=== PATIENT | female | born 1955 | race Two or more races ===

== ENCOUNTER → 2020-02-22 | Outpatient (CLI) | payer MEDICARE ==
[2020-02-22 10:55] VITALS: BP 162/96; PULSE 74; RESP 16
--- NOTE | 2020-02-22 12:13 | P.PAINCN ---
History of Present Illness - Reason for Consult Consult date: 02/22/20 - History of Present Illness This is initial consultation visit for this 65 years old female with a chronic history of low back pain, she reported that she had back pain issues for more than 10 years, but in June 2019 she started having continuous severe pain in the low back area which is increased with any activity, she described the pain as shooting aching pain associated with spasm radiating from the low back area towards the feet bilaterally, with occasional weakness, in the lower extremity, she denies any initiating event she denies any fever or night sweats, she is able to ambulate on her own she denies any change in the bowel movement or urination, she is currently on Motrin and Trileptal, and she is getting some benefit from it and she denies any side effect of the medication Past Medical History Past Medical History: Hypertension, Osteoarthritis (OA), Pneumonia Additional Past Medical History / Comment(s): hx migraines, spinal stenosis, anemia History of Any Multi-Drug Resistant Organisms: None Reported Past Surgical History: Section, Hysterectomy, Tonsillectomy Past Anesthesia/Blood Transfusion Reactions: No Reported Reaction Smoking Status: Former smoker - Past Family History Mother Family Medical History: No Reported History Medications and Allergies Home Medications Medication Instructions Recorded Confirmed Type Multivitamins, Thera [Multivitamin 1 tab PO DAILY 02/21/20 02/22/20 History (formulary)] OXcarbazepine [Trileptal] 300 mg PO BID PRN 02/21/20 02/22/20 History Venlafaxine HCl [Effexor] 75 mg PO QAM 02/21/20 02/22/20 History amLODIPine [Norvasc] 5 mg PO DAILY 02/21/20 02/22/20 History lisinopriL 40 mg PO DAILY 02/21/20 02/22/20 History Ibuprofen [Motrin] 200 - 400 mg PO BID PRN 02/22/20 02/22/20 History Allergies Allergy/AdvReac Type Severity Reaction Status Date / Time No Known Allergies Allergy Verified 02/22/20 10:37 Physical Exam Vitals: Vital Signs Pulse Resp BP Pulse Ox 02/22/20 10:52 74 16 162/96 96 Physical Examinations : -Constitutiona : Cooperative , not in acute distress . -HEENT : nech : supple , no Lymphadenopathy , normal thyroid size . : eyes : no ptosis , no icterus, no photophobia . - neurologic : Cranial nerve II to XII intact , no focal neurological deffecit . -psychatric : alert , oriented X 3 , appropriate affect , intact judgment and insight . -Lymphatic : no Lymphadenopathy . - musculoskeltal : Lumber spine moter stegnth lower extremities ,thigh and legs 5/5 Right side , 5/5 Left side deep tendon reflexes : normal Knee Jerk , normal ankle Jerk lumber facet Loading Test =positive Right , positive Left Range of motion of the lumbar spine Flexion 30 degrees, extension 10 degrees strait leg raising test = positive at 30 degree on the right side and positive at 45 on the left side Fabere test= positive Right , and positive LT . tenderness over the Sacroiliac joint on the Right , and Left sides Results Comments: MRI of the lumbar spine done at [facility]= L3 4 lumbar spinal stenosis and disc herniation at L3 4 and that is lumbar facet arthropathy Assessment and Plan Plan: Assessment and plan=1-lumbar spinal stenosis. 2-lumbar disc herniation. 3-lumbar spondylosis with lumbar facet arthropathy. Patient will be good candidate for lumbar epidural steroid injection at L4 5 under fluoroscopy guidance Time with Patient: Greater than 30 PQRS Measure Charge Sheet Measure #130: Documentation of Current Meds in Medical Chart: Patient's medications documented in chart Measure #226: Tobacco Use: Screen & Cessation Intervention: Pt not a tobacco user Measure #111: Pneumonia Vaccination: Pneumococcal vaccine NOT administered or previously given Measure #47: Advance Care Plan: Advance care planning discussed & documented, pt chose/unable to give Measure #412: Opioid Treatment Agreement: No documentation of signed opioid treatment agreement Measure #408: Opioid Therapy Follow-up Evaluation: Patient had NO f/u eval minimum every 3 months during opioid therapy Measure #317: Preventitive Care & Scrn High Bld Press & F/U: Normal blood pressure, f/u not required Measure #128: Body Mass Index (BMI) Screening & Follow-up: BMI documented ABOVE normal parameters - f/u documented Measure #131: Pain Assessment & Follow-up: Pain positive & plan documented, Follow-up scheduled Measure #431: Unhealthy Alcohol Use Preventative Care & Scrn: Patient not identified as an unhealthy alcohol user PQRS Narrative: Blood Pressure 162/96 Pain Intensity [Bilateral Leg] 5 Scale Used Numeric (1 - 10) Hx Alcohol Use (MH) Yes Home Medications: Ambulatory Orders Multivitamins, Thera [Multivitamin (formulary)] 1 tab PO DAILY 02/21/20 OXcarbazepine [Trileptal] 300 mg PO BID PRN 02/21/20 Venlafaxine HCl [Effexor] 75 mg PO QAM 02/21/20 amLODIPine [Norvasc] 5 mg PO DAILY 02/21/20 lisinopriL 40 mg PO DAILY 02/21/20 Ibuprofen [Motrin] 200 - 400 mg PO BID PRN 02/22/20
== END | disposition home or self-care (01) ==
LOC: PNWHC3 10:03
PROVIDERS: ATTEND Specialist
DX: M48.061 Spinal stenosis, lumbar region without neurogenic claudication (principal); M51.26 Other intervertebral disc displacement, lumbar region; M47.816 Spondylosis without myelopathy or radiculopathy, lumbar region; I10 Essential (primary) hypertension; G43.909 Migraine, unspecified, not intractable, without status migrainosus; M19.90 Unspecified osteoarthritis, unspecified site; Z87.891 Personal history of nicotine dependence; Z79.1 Long term (current) use of non-steroidal anti-inflammatories (NSAID); Z79.899 Other long term (current) drug therapy
CPT/HCPCS: 99201

== ENCOUNTER 2020-03-06 06:03 | Day surgery (SDC) | payer MEDICARE ==
[2020-03-01 08:55] VITALS: BMI 31.1
[2020-03-06 06:39] VITALS: RESP 16; TEMP 97.8
[2020-03-06] MEDS: LACTATED RINGERS 1,000 ML IV SCH ×2 (06:39→06:52)
[2020-03-06] MEDS ORDERED: MIDAZOLAM 2 MG/2 ML VIAL ONE (06:52)
[2020-03-06] MEDS ORDERED: IOPAMIDOL M200 10 ML VIAL ONE (06:52)
[2020-03-06] MEDS ORDERED: fentaNYL (PF) 50 MCG/ML 2 ML AMP ONE (06:52)
[2020-03-06] MEDS ORDERED: methylPREDNISolone ACETATE 80 MG/ML 1 ML VIAL ONE (06:52)
--- NOTE | 2020-03-06 07:08 | P.PCN ---
Date of Procedure: 03/06/20 Procedure(s) Performed: PREOPERATIVE DIAGNOSIS: 1- Lumbar herniated Disc Diseases 2-Lumbar spondylosis with Facet arthropathy without myelopathy. 3-lumbar spinal stenosis POSTOPERATIVE DIAGNOSIS: Same as pre-diagnoses PROCEDURE 1. Lumbar epidural steroid injection under fluoroscopic guidance at the L4-5 level. (Fluoroscopy imaging was available in radiology department) 2. Lumbar epidurogram. ANESTHESIA: Local with 1% lidocaine 3 ml and , moderate sedation with intra venous Versed 1 mg ,and fentanyle 50 Mcg EBL: Minimal PROCEDURE INDICATION: The patient with low back pain and radiculitis symptoms unresponsive to conservative treatment. Fluoroscopy was used to optimize visualization of the needle placement and to maximize safety. PROCEDURE DESCRIPTION / TECHNIQUE: The patient was seen and identified in the preoperative area. Risks, benefits, complications including but not limited to infections ,bleeding ,allergic reaction to the medications ,nerve damage and not complete pain releife , and alternatives were discussed with the patient. The patient agreed to proceed with the procedure and signed the consent. IV was started, and vital signs were stable. Patient was taken to the OR and time out was completed. The patient was placed in the prone position on procedure table and a pillow was placed under the abdomen to reduce lumbar lordosis. The lumbosacral area was prepped and draped in the usual sterile fashion.ere closely monitored during the procedure. Conscious sedation was used during the procedure to decrease patients anxiety. Vital signs was monitered during the entire procedure. Using anterior-posterior fluoroscopy, the L4-5 interlaminar space was identified and the skin over this site was marked and then infiltrated with 1% lidocaine subcutaneously. Subsequently, a 20-gauge Tuohy epidural needle was inserted and advanced toward the epidural space using the ``Loss of resistance technique and guided by AP and lateral fluoroscopy. The correct needle position in the epidural space was verified with the injection of 2 mL of the water soluble contrast dye Isovue 200 contrast and observing an excellent epidurogram with the epidural spread of the dye, after negative aspiration for blood and CSF and in the absence of paresthesias. Again after negative aspiration, a 6 ml mixture containing 80 mg of Depo-medrol , and 2 ml of preservative free Normal Saline, and 2 ml of preservative free lidocaine 1% solution was injected and a washout of epidurogram was seen. Needle was withdrawn intact, skin was cleansed, and bandages were applied. COMPLICATIONS: None DISPOSITION / PLANS: The patient was placed in a supine position and transferred to the recovery area in a stable condition for observation. There was no evidence of lower extremity motor or sensory deficit after the procedure. Patient was discharged from the recovery room after meeting discharge criteria. Home discharge instructions were given to the patient by the staff. The patient was reexamined prior to discharge. The patient will schedule a follow up in the clinic in 2-4 weeks.
[2020-03-06] MEDS ORDERED: IV FLUID CONTINUATION 1,000 ML IV ONE (07:11)
[2020-03-06 07:26] VITALS: BP 145/87; PULSE 84
--- NOTE | 2020-03-06 07:59 | FL ---
EXAMINATION TYPE: FL guided pain mgmt statistic DATE OF EXAM: 03/06/2020 CLINICAL HISTORY: Low back pain. TECHNIQUE: Fluoroscopy. COMPARISON: None. FINDINGS: Fluoroscopic guidance was provided during pain relief procedure performed by Dr. Field . A total of 1 second of fluoroscopic time was utilized during the procedure and single spot image i s acquired. Single image acquired shows needle localization in the lower lumbar spine. IMPRESSION: As Above.
== END 2020-03-06 07:40 ==
LOC: ORPAIN 06:03
PROVIDERS: ATTEND Specialist
DX: G89.29 Other chronic pain (principal); M47.26 Other spondylosis with radiculopathy, lumbar region; M51.16 Intervertebral disc disorders with radiculopathy, lumbar region; M48.061 Spinal stenosis, lumbar region without neurogenic claudication; I10 Essential (primary) hypertension; M19.90 Unspecified osteoarthritis, unspecified site; Z87.01 Personal history of pneumonia (recurrent); D64.9 Anemia, unspecified; Z90.710 Acquired absence of both cervix and uterus; Z98.890 Other specified postprocedural states; Z87.891 Personal history of nicotine dependence; Z79.1 Long term (current) use of non-steroidal anti-inflammatories (NSAID); Z79.899 Other long term (current) drug therapy
CPT/HCPCS: 62323; J2250; J1040; J3010; Q9966

== ENCOUNTER 2020-03-15 08:17 | Day surgery (SDC) | payer MEDICARE ==
[2020-03-13 09:48] VITALS: BMI 30.6
[~2020-03-15 08:17] MED LIST: LACTATED RINGERS 1,000 ML IV SCH
[2020-03-15 08:46] VITALS: RESP 16; TEMP 98.8
[2020-03-15] MEDS ORDERED: LIDOCAINE 1% (10MG/ML) FOR IV START INTRADERMA ONE (08:46)
[2020-03-15] MEDS ORDERED: PROPOFOL 10 MG/ML 20 ML VIAL IV ONE (09:24)
[2020-03-15] MEDS ORDERED: LIDOCAINE 1% INJ 10MG/ML (20 ML MDV) ONE (09:24)
--- NOTE | 2020-03-15 09:29 | P.GSHP ---
History of Present Illness H&P Date: 03/15/20 Chief Complaint: History of colon Polyp This is a 65-year-old female who presents today for colonoscopy. She's. History colon polyps. Patient has developed iron deficiency anemia. She denies any GI bleed. Past Medical History Past Medical History: Hypertension Additional Past Medical History / Comment(s): SPINAL STENOSIS ([facility] PT), LOW IRON. History of Any Multi-Drug Resistant Organisms: None Reported Past Surgical History: Section, Hysterectomy, Tonsillectomy Past Anesthesia/Blood Transfusion Reactions: No Reported Reaction Past Psychological History: Depression Smoking Status: Former smoker Past Alcohol Use History: Rare Additional Past Alcohol Use History / Comment(s): QUIT SMOKING 2017, SMOKED 1PPD, STARTED AGE 18 Past Drug Use History: None Reported - Past Family History Mother Family Medical History: No Reported History Medications and Allergies Home Medications Medication Instructions Recorded Confirmed Type Venlafaxine HCl [Effexor] 75 mg PO QAM 02/21/20 03/15/20 History amLODIPine [Norvasc] 5 mg PO DAILY 02/21/20 03/15/20 History lisinopriL 40 mg PO DAILY 02/21/20 03/15/20 History Ibuprofen [Motrin] 200 - 400 mg PO BID PRN 02/22/20 03/15/20 History Cholecalciferol [Vitamin D3 (25 1,000 unit PO DAILY 03/13/20 03/15/20 History Mcg = 1000 Iu)] Multivit with Calcium,Iron,Min 1 each PO DAILY 03/13/20 03/15/20 History [Women's Multivitamin] Allergies Allergy/AdvReac Type Severity Reaction Status Date / Time No Known Allergies Allergy Verified 03/15/20 08:41 Surgical - Exam Vital Signs Temp Pulse Resp BP Pulse Ox 98.8 F 79 16 154/75 98 03/15/20 08:45 03/15/20 08:45 03/15/20 08:45 03/15/20 08:45 03/15/20 08:45 - General well developed, well nourished, no distress - Eyes PERRL - ENT normal pinna - Neck no masses - Respiratory normal expansion - Cardiovascular Rhythm: regular - Abdomen Abdomen: soft, non tender Assessment and Plan Assessment: History of colonic polyps. Anemia. We'll perform colonoscopy.
--- NOTE | 2020-03-15 09:46 | P.OP ---
Date of Procedure: 03/15/20 Preoperative Diagnosis: History of colonic polyps Iron deficiency anemia Postoperative Diagnosis: Antral gastritis Duodenitis No evidence of hiatal hernia No significant esophagitis Procedure(s) Performed: EGD Colonoscopy Anesthesia: MAC Surgeon: Derrek Villafuerte Pathology: other (Antrum, duodenum) Condition: stable Disposition: PACU Description of Procedure: The patient's placed on the endoscopy table lateral position. She received IV sedation. The gastric scope placed oropharynx and passed in the esophagus and into the stomach. Scope was then placed through the pylorus. The first and second portion of the duodenum was examined. This appeared inflamed. A biopsies performed. Scope was then brought back the antrum this. Inflamed. A biopsies performed. Scope was unretroflexed and remainder of the stomach appeared normal. The GE junction was at 40 cm. There is no evidence of any hiatal hernia. The distal esophagus appeared normal. The proximal esophagus appeared normal. Scope was withdrawn for patient. Next digital rectal exam was performed which revealed external hemorrhoids. Flexible colonoscope was then placed patient anus and passed throughout the entire colon. The ileocecal valve was visualized. The cecum, ascending and transverse colon appeared normal. The descending and sigmoid colon appeared normal. The scope was then brought back the rectum and this appeared normal. Scope was withdrawn for patient. There is no evidence of any GI bleed. It was presumed the patient's anemia was due to her gastritis/duodenitis
[2020-03-15 10:08] VITALS: BP 114/72; PULSE 82
== END 2020-03-15 10:36 | disposition home or self-care (01) ==
LOC: ORWHC2ENDO 08:17
PROVIDERS: ATTEND Surgery
DX: Z12.11 Encounter for screening for malignant neoplasm of colon (principal); K29.50 Unspecified chronic gastritis without bleeding; K29.80 Duodenitis without bleeding; D50.9 Iron deficiency anemia, unspecified; K64.4 Residual hemorrhoidal skin tags; Z86.010 Personal history of colon polyps; I10 Essential (primary) hypertension; M48.00 Spinal stenosis, site unspecified; F32.9 Major depressive disorder, single episode, unspecified; Z79.1 Long term (current) use of non-steroidal anti-inflammatories (NSAID); Z79.899 Other long term (current) drug therapy; Z90.710 Acquired absence of both cervix and uterus; Z90.89 Acquired absence of other organs; Z87.891 Personal history of nicotine dependence
CPT/HCPCS: 88305; 43239; J2001; J2704; G0121

== ENCOUNTER → 2020-04-03 | Day surgery (SDC) | payer MEDICARE ==
[2020-03-30 11:36] VITALS: BMI 30.6
[~2020-04-03] MED LIST changes: +IOPAMIDOL M200 10 ML VIAL ONE; +IV FLUID CONTINUATION 1,000 ML IV ONE; +LACTATED RINGERS 1,000 ML IV ONE; +MIDAZOLAM 2 MG/2 ML VIAL ONE; +fentaNYL (PF) 50 MCG/ML 2 ML AMP ONE; +methylPREDNISolone ACETATE 40 MG/ML 1 ML VIAL ONE
[2020-04-03 11:48] VITALS: TEMP 98.4
--- NOTE | 2020-04-03 12:53 | P.PCN ---
Date of Procedure: 04/03/20 Procedure(s) Performed: PREOPERATIVE DIAGNOSIS: 1- Lumbar herniated Disc Diseases 2-Lumbar spondylosis with Facet arthropathy without myelopathy. 3-lumbar spinal stenosis POSTOPERATIVE DIAGNOSIS: Same as pre-diagnoses PROCEDURE 1. Lumbar epidural steroid injection under fluoroscopic guidance at the L4-5 level. (Fluoroscopy imaging was available in radiology department) 2. Lumbar epidurogram. ANESTHESIA: Local with 1% lidocaine 3 ml and , moderate sedation with intravenous Versed 1 mg ,and fentanyle 50 Mcg EBL: Minimal PROCEDURE INDICATION: The patient with low back pain and radiculitis symptoms unresponsive to conservative treatment. Fluoroscopy was used to optimize visualization of the needle placement and to maximize safety. PROCEDURE DESCRIPTION / TECHNIQUE: The patient was seen and identified in the preoperative area. Risks, benefits, complications including but not limited to infections ,bleeding ,allergic reaction to the medications ,nerve damage and not complete pain releife , and alternatives were discussed with the patient. The patient agreed to proceed with the procedure and signed the consent. IV was started, and vital signs were stable. Patient was taken to the OR and time out was completed. The patient was placed in the prone position on procedure table and a pillow was placed under the abdomen to reduce lumbar lordosis. The lumbosacral area was prepped and draped in the usual sterile fashion.ere closely monitored during the procedure. Conscious sedation was used during the procedure to decrease patients anxiety. Vital signs was monitered during the entire procedure. Using anterior-posterior fluoroscopy, the L4-5 interlaminar space was identified and the skin over this site was marked and then infiltrated with 1% lidocaine subcutaneously. Subsequently, a 20-gauge Tuohy epidural needle was inserted and advanced toward the epidural space using the ``Loss of resistance technique and guided by AP and lateral fluoroscopy. The correct needle position in the epidural space was verified with the injection of 2 mL of the water soluble contrast dye Isovue 200 contrast and observing an excellent epidurogram with the epidural spread of the dye, after negative aspiration for blood and CSF and in the absence of paresthesias. Again after negative aspiration, a 6 ml mixture containing 80 mg of Depo-medrol , and 2 ml of preservative free Normal Saline, and 2 ml of preservative free lidocaine 1% solution was injected and a washout of epidurogram was seen. Needle was withdrawn intact, skin was cleansed, and bandages were applied. COMPLICATIONS: None DISPOSITION / PLANS: The patient was placed in a supine position and transferred to the recovery area in a stable condition for observation. There was no evidence of lower extremity motor or sensory deficit after the procedure. Patient was discharged from the recovery room after meeting discharge criteria. Home discharge instructions were given to the patient by the staff. The patient was reexamined prior to discharge. The patient will schedule a follow up in the clinic in 2-4 weeks.
[2020-04-03 12:58] VITALS: RESP 17
--- NOTE | 2020-04-03 13:05 | FL ---
EXAMINATION TYPE: FL guided pain mgmt statistic DATE OF EXAM: 04/03/2020 CLINICAL HISTORY: Low back pain. TECHNIQUE: Fluoroscopy. COMPARISON: None. FINDINGS: Fluoroscopic guidance was provided during pain relief procedure performed by Dr. Field . A total of .01 minutes of fluoroscopic time was utilized during the procedure and single spot imag e is acquired. Single Image is acquired shows needle localization at roughly L4 level. IMPRESSION: As Above.
[2020-04-03 13:06] VITALS: BP 119/74; PULSE 66
== END ==
LOC: ORPAIN 11:24
PROVIDERS: ATTEND Specialist
DX: M47.26 Other spondylosis with radiculopathy, lumbar region (principal); M51.16 Intervertebral disc disorders with radiculopathy, lumbar region; M48.061 Spinal stenosis, lumbar region without neurogenic claudication
CPT/HCPCS: 62323; J2250; J1030; J3010; Q9966

== ENCOUNTER → 2020-04-23 | Outpatient (CLI) | payer MEDICARE ==
[2020-04-23 13:33] VITALS: BP 162/82; PULSE 92; TEMP 98.7
[2020-04-23 13:36] VITALS: RESP 20
--- NOTE | 2020-04-23 13:59 | P.PN ---
Subjective Progress Note Date: 04/23/20 Yumiko presents today for follow-up after having 2 lumbar epidural steroid injection. She continues to have some low back pain which is worse sitting. She finds that standing up or bending over makes her pain better. She has difficulty with standing up for long periods of time she denies any weakness in her legs. She denies any numbness or tingling. She is feels like she has weakness in bilateral thighs. She denies any bowel or bladder incontinence. She denies any neck pain or upper back pain. Denies any upper extremity weakness numbness or tingling. Objective - Vital Signs Vital signs: Vital Signs Temp 98.7 F 04/23/20 13:35 Pulse 92 04/23/20 13:35 Resp 20 04/23/20 13:35 BP 162/82 04/23/20 13:35 Pulse Ox 97 04/23/20 13:35 - Exam General: Awake and alert oriented 3 no distress Respiratory exam: No audible wheezing no accessory muscle usage Cardiovascular exam: regular rate, palpable bilateral pulses, no lower extremity edema Abdominal exam: No distention nontender to palpation Cervical spine: Normal alignment, Spurling's negative, facet loading negative, Wet Pour Supervisor strength is 5/5, schulz negative Lumbar spine: There is a preserved lumbar lordosis. There is decent muscle bulk in the lumbar spine. Flexion and extension are normal. Straight leg raise causes pain bilaterally. Sacroiliac joints: Nontender to palpation, NANDINI is negative, Gaenselon negative Neuro exam: Normal sensation in bilateral upper extremities, deep tendon reflexes are 2+ bilateral upper extremities. Normal sensation in bilateral lower extremities. Deep tendon reflexes are diminished in the left patellar and Achilles compared to 2+ in the right patella right Achilles. Psych exam: Cooperative, appropriate mood Assessment and Plan Assessment: #1 lumbar spinal stenosis #2 lumbar spondylosis without myelopathy Plan: At this point we will hold off repeating any other injections. She will work on the Rober strength exercises, she will continue with exercises, inversion tables, and she will continue with physical therapy exercises she learned. I've offered her to go back to therapy for a couple weeks for a refresher. She'll give us a call if she needs a prescription. We'll hold off on the injections are now and repeat in the future as needed.
== END | disposition home or self-care (01) ==
LOC: PNWHC3 13:22
PROVIDERS: ATTEND Hospitalist
DX: M48.061 Spinal stenosis, lumbar region without neurogenic claudication (principal); M47.816 Spondylosis without myelopathy or radiculopathy, lumbar region
CPT/HCPCS: 99211

== ENCOUNTER → 2020-09-27 | Outpatient (CLI) | payer MEDICARE ==
--- NOTE | 2020-09-27 12:14 | CT ---
EXAMINATION TYPE: CT lumbar spine wo con DATE OF EXAM: 09/27/2020 COMPARISON: HISTORY: Low back pain for years. CT DLP: 888.[address] of the lumbar spine was performed. Bone and soft tissue window settings are submitted as well as coronal and sagittal reconstructions. L1-L2: Normal disc space height. No disc herniation protrusion or central stenosis. No facet joint arthropathy. No evidence for foraminal encroachment. L2-L3: Normal disc space height. No disc herniation protrusion or central stenosis. No facet joint arthropathy. No evidence for foraminal encroachment. L3-L4: Moderate degenerative disc space narrowing. Posterior disc bulge. Hypertrophy ligamentum flavu m and facet joint arthropathy contribute to moderate central stenosis. L4-L5: Mild degenerative disc space narrowing. Posterior disc bulge. Effacement ventral thecal sac. H ypertrophy ligamentum flavum and facet joint arthropathy resulting in moderate central stenosis. L5-S1: Normal disc space height. No disc herniation protrusion or central stenosis. No facet joint arthropathy. No evidence for foraminal encroachment. No paraspinal masses are identified. Lumbar segments are free if fracture. IMPRESSION: 1. Multilevel degenerative disc disease with central stenosis at L3-4 and L4-5.
== END | disposition home or self-care (01) ==
LOC: RADCTMAIN 11:24
PROVIDERS: ATTEND Orthopaedic Surgery
DX: M48.061 Spinal stenosis, lumbar region without neurogenic claudication (principal); M51.36 Other intervertebral disc degeneration, lumbar region
CPT/HCPCS: 72131

== ENCOUNTER 2020-10-02 07:17 | Day surgery (SDC) | payer MEDICARE ==
[2020-09-27 16:17] VITALS: BMI 31.1
[2020-10-02 07:32] VITALS: TEMP 98.2
[2020-10-02] MEDS ORDERED: LACTATED RINGERS 1,000 ML IV ONE (07:40)
[2020-10-02] MEDS ORDERED: MIDAZOLAM 2 MG/2 ML VIAL ONE (07:52)
[2020-10-02] MEDS ORDERED: DEXAMETHASONE SOD PHOSPHATE 10 MG/ML 1 ML VIAL ONE (07:52)
[2020-10-02] MEDS ORDERED: IOPAMIDOL M200 10 ML VIAL ONE (07:52)
[2020-10-02] MEDS ORDERED: fentaNYL (PF) 50 MCG/ML 2 ML AMP ONE (07:52)
--- NOTE | 2020-10-02 08:13 | P.PCN ---
Date of Procedure: 10/02/20 Description of Procedure: PREOPERATIVE DIAGNOSIS: Lumbar radiculopathy POSTOPERATIVE DIAGNOSIS: Lumbar radiculopathy Attending physician: Yovanny Mills M.D. PROCEDURE 1. Transforaminal epidural steroid injection under fluoroscopic guidance L4- [id number], right side 2. Lumbar epidurogram ANESTHESIA: Local with 1% lidocaine 3 ml ; IV sedation with Versed and fentanyl , sedation time 17 min PROCEDURE INDICATION: The patient with low back pain and radiculopathy symptoms unresponsive to conservative treatment. Fluoroscopy was used for the procedure and fluoroscopic images were saved to the radiology portion of patient's chart. PROCEDURE DESCRIPTION / TECHNIQUE: The patient was seen and identified in the preoperative area. Risks, benefits, complications, and alternatives were discussed with the patient. The patient agreed to proceed with the procedure and signed the consent. IV was started, and vital signs were stable. Patient was taken to the OR and time out was completed. The patient was placed in the prone position on procedure table and a pillow was placed under the abdomen to reduce lumbar lordosis. The lumbosacral area was prepped and draped in the usual sterile fashion. Vital signs were closely monitored during the procedure. Conscious sedation was used. Using oblique fluoroscopy, the chin of the ``Fabian dog and the skin and deeper tissues just below was localized with 1% lidocaine. Subsequently, a 22- gauge 3.5-inch spinal needle was advanced under a tunneled view fluoroscopic guidance just underneath the chin of the ``Fabian dog . Under lateral fluoroscopy, the needle was then advanced to the posterior border of the foramen. After negative aspiration of CSF and blood and with no paresthesias, 1 mL of Isovue-200 contrast dye was injected under live fluoroscopy and there was no evidence of intravascular injection. The injectate solution consisting of 10 mg of dexamethasone with 1 mL of 1% lidocaine was then delivered. The needle was withdrawn intact. At the end of the procedure, skin was cleansed, and bandages were applied. COMPLICATIONS: None COMMENTS: DISPOSITION / PLANS: The patient was placed in a supine position and transferred to the recovery area in a stable condition for observation. There was no evidence of lower extremity motor or sensory deficit after the procedure. Patient was discharged from the recovery room after meeting discharge criteria. Home discharge instructions were given to the patient by the staff. The patient will follow up repeat procedure in 2-4 weeks.
[2020-10-02] MEDS ORDERED: IV FLUID CONTINUATION 450 ML IV ONE (08:16)
[2020-10-02 08:22] VITALS: RESP 20
[2020-10-02 08:36] VITALS: BP 136/67; PULSE 66
--- NOTE | 2020-10-02 12:19 | FL ---
Fluoroscopy INDICATION: Pain FINDINGS: Fluoroscopy time: 33 seconds. Images obtained: 1. IMPRESSIONS: 1. Documentation of fluoroscopy.
== END 2020-10-02 08:48 | disposition home or self-care (01) ==
LOC: ORPAIN 07:17
PROVIDERS: ATTEND Anesthesiology
DX: M54.16 Radiculopathy, lumbar region (principal); M43.16 Spondylolisthesis, lumbar region
CPT/HCPCS: 64483; J2250; J1100; J3010; Q9966; 99152

== ENCOUNTER → 2020-10-15 | Outpatient (CLI) | payer MEDICARE ==
[2020-10-15 09:53] VITALS: BP 153/88; PULSE 78; RESP 18; TEMP 98.1
--- NOTE | 2020-10-15 10:02 | P.PN ---
Subjective Progress Note Date: 10/15/20 This is for visit for this 65 years old female with a chronic history of severe low back pain with radiation to the right lower extremity, she is diagnosed with lumbar radiculopathy, lumbar disc herniation and lumbar spondylosis, recently with a right-sided transforaminal epidural steroid injections, L4 5 levels, she reported ,that ,she gets excellent pain relief after the injection ,and her ability to do activities of daily livings improve significantly, she denies any motor or sensory deficit she denies any fever or night sweats, she denies any motor or sensory deficit, he continued to use Motrin when necessary, and Lyrica 75 mg 3 times a day and denies any side effect of the medication Objective - Vital Signs Vital signs: Vital Signs Temp 98.1 F 10/15/20 09:50 Pulse 78 10/15/20 09:50 Resp 18 10/15/20 09:50 BP 153/88 10/15/20 09:50 Pulse Ox 96 10/15/20 09:50 - Exam Physical Examinations : -Constitutiona : Cooperative , not in acute distress . -HEENT : nech : supple , no Lymphadenopathy , normal thyroid size . : eyes : no ptosis , no icterus, no photophobia . - neurologic : Cranial nerve II to XII intact , no focal neurological deffecit . -psychatric : alert , oriented X 3 , appropriate affect , intact judgment and insight . -Lymphatic : no Lymphadenopathy . - musculoskeltal : Lumber spine moter stegnth lower extremities ,thigh and legs 5/5 Right side , 5/5 Left side deep tendon reflexes : normal Knee Jerk , normal ankle Jerk lumber facet Loading Test =positive Right , positive Left Range of motion of the lumbar spine Flexion 30 degrees, extension 10 degrees strait leg raising test = positive at 30 degree on the right side ,and negative on the left side Fabere test= positive Right , and negattive LT . mild tenderness over the Sacroiliac joint on the Right . Results Comments: MRI of the lumbar spine done at [facility]= L3 4 lumbar spinal stenosis and disc herniation at L3 4 and that is lumbar facet arthropathy Assessment and Plan Plan: Assessment and plan=1-lumbar radiculopathy. 2-Lumbar disc herniation. 3-lumbar spondylosis and lumbar facet art hropathy. Patient could benefit from repeat right-sided transforaminal epidural steroid injection at L4 5 levels under fluoroscopy guidance - PQRS measures = - Patient's medications are documented in the chart. -Tobacco use is negative and counseling.Given. -Patient's has not received pneumococcal vaccine. -Advanced care planning discussed, patient not eligible. -Opiate contract not signed. -Pain positive and follow-up visit/procedure is scheduled. -Patient's blood pressure measured [ 153/88 ] , and documented in the record ,and patient will follow up with the primary care. -Patient's weight was measured and body mass index [ 33.3 ] above the,normal limits and counseling was done. and patient instructed to follow-up with the primary care physician. -Patient was not identified as an unhealthy alcohol user Time with Patient: Less than 30
== END ==
LOC: PNWHC3 09:19
PROVIDERS: ATTEND Specialist
DX: M51.16 Intervertebral disc disorders with radiculopathy, lumbar region (principal); M47.26 Other spondylosis with radiculopathy, lumbar region
CPT/HCPCS: 99211

== ENCOUNTER 2020-11-01 08:27 | Day surgery (SDC) | payer MEDICARE ==
[2020-10-30 12:22] VITALS: BMI 33.3
[~2020-11-01 08:27] MED LIST changes: -IOPAMIDOL M200 10 ML VIAL ONE; -IV FLUID CONTINUATION 1,000 ML IV ONE; -LACTATED RINGERS 1,000 ML IV ONE; -MIDAZOLAM 2 MG/2 ML VIAL ONE; -fentaNYL (PF) 50 MCG/ML 2 ML AMP ONE; -methylPREDNISolone ACETATE 40 MG/ML 1 ML VIAL ONE
[2020-11-01 08:52] VITALS: TEMP 97.4
[2020-11-01] MEDS ORDERED: LIDOCAINE 1% (10MG/ML) FOR IV START INTRADERMA ONE (08:56)
[2020-11-01] MEDS ORDERED: IOPAMIDOL M200 10 ML VIAL ONE (09:37)
[2020-11-01] MEDS ORDERED: fentaNYL (PF) 50 MCG/ML 2 ML AMP ONE (09:37)
[2020-11-01] MEDS ORDERED: MIDAZOLAM 2 MG/2 ML VIAL ONE (09:37)
[2020-11-01] MEDS ORDERED: methylPREDNISolone ACETATE 40 MG/ML 1 ML VIAL ONE (09:37)
--- NOTE | 2020-11-01 09:54 | P.PCN ---
Date of Procedure: 11/01/20 Procedure(s) Performed: PREOPERATIVE DIAGNOSIS:1- Lumbar radiculopathy .2-lumbar disc herniation. 3- lumbar spondylosis with lumbar facet arthropathy POSTOPERATIVE DIAGNOSIS: Same as preoperative diagnoses. PROCEDURE 1. Transforaminal epidural steroid injection under fluoroscopic guidance at right L4-5 level. (Fluoroscopy images stored on file in the radiology Department ) 2. Lumbar epidurogram . ANESTHESIA: Local with 1% lidocaine 3 ml , moderate sedation with intravenous Versed 2 mg and fentanyle 50 micrograms. EBL: Minimal PROCEDURE INDICATION: The patient with low back pain and radiculopathy symptoms unresponsive to conservative treatment. PROCEDURE DESCRIPTION / TECHNIQUE: The patient was seen and identified in the preoperative area. Risks, benefits, complications, and alternatives were discussed with the patient. The patient agreed to proceed with the procedure and signed the consent. IV was started, and vital signs were stable. Patient was taken to the OR and time out was completed. The patient was placed in the prone position on procedure table and a pillow was placed under the abdomen to reduce lumbar lordosis. The lumbosacral area was prepped and draped in the usual sterile fashion. Critical pause was taken. Vital signs were closely monitored during the procedure. Conscious sedation was used during the procedure to decrease patient s anxiety. Using oblique fluoroscopy, the chin of the ``Fabian dog at L4-5 level was identified, and the skin and deeper tissues just below was localized with 1% lidocaine. Subsequently, a 22-gauge 5-inch spinal needle was advanced under a tunneled view fluoroscopic guidance just underneath the chin of the ``Fabian dog at the right L4-5 Under lateral fluoroscopy, the needle was then advanced to the posterior border of the interforaminal space. After negative aspiration of CSF and blood and with no paresthesias, 1 mL Isovue 200 contrast dye was injected excellent epidurogram and outlining of the nerve root Subsequently, 3 mL of block solution containing 80 mg Depo-Medrol and 2 mL of 0.9% normal saline PF was injected. Needle was removed . At the end of the procedure, skin was cleansed, and bandages were applied. COMPLICATIONS:none DISPOSITION / PLANS: The patient was placed in a supine position and transferred to the recovery area in a stable condition for observation. There was no evidence of lower extremity motor or sensory deficit after the procedure. Patient was discharged from the recovery room after meeting discharge criteria. Home discharge instructions were given to the patient by the staff. The patient was reexamined prior to discharge.
[2020-11-01] MEDS ORDERED: IV FLUID CONTINUATION 1,000 ML IV ONE (09:57)
--- NOTE | 2020-11-01 10:15 | FL ---
EXAMINATION TYPE: FL guided pain mgmt statistic DATE OF EXAM: 11/01/2020 CLINICAL HISTORY: Low back pain. TECHNIQUE: Fluoroscopy. COMPARISON: None. FINDINGS: Fluoroscopic guidance was provided during pain relief procedure performed by Dr. Field . A total of 13 seconds of fluoroscopic time was utilized during the procedure and 1 spot images are acquired. Single image acquired shows needle localization at L4 level with contrast injection. IMPRESSION: As Above.
[2020-11-01 10:21] VITALS: BP 122/74; PULSE 88; RESP 12
== END 2020-11-01 10:24 | disposition home or self-care (01) ==
LOC: ORPAIN 08:27
PROVIDERS: ATTEND Specialist
DX: M47.26 Other spondylosis with radiculopathy, lumbar region (principal); M51.16 Intervertebral disc disorders with radiculopathy, lumbar region
CPT/HCPCS: 64483; J2250; J1030; J3010; Q9966; 99152

== ENCOUNTER → 2022-12-04 | Outpatient (CLI) | payer MEDICARE ==
[2022-12-04 11:14] VITALS: BP 150/87; PULSE 66; RESP 18; TEMP 98.4
--- NOTE | 2022-12-04 14:32 | P.PAINPG ---
PQRS Measure Charge Sheet Comment: A 67 yr old female with a history of severe and chronic LBP secondary to lumbar DDD and spondylosis with facet arthropathy without myelopathy presents today for evaluation s/p R TFESI L4-L5. Pt states she experienced 75 % pain relief x 4 months s/p procedure. Pain level is provoked at 9/10 in intensity, constant, localized in the R lumbar spine, throbbing in character w shooting towards R groin, R inner thigh and RLE. Pain is provoked by walking, lifting, bending. Pain is alleviated with medications, topicals, repositioning and rest. Pt states PT and chiropractic treatments were yrs ago. Interventional pain procedures completed include R TFESI L4-L5 x2 Patient is currently on Tyl, Celebrex Patient denies any side effects of the medication(s), denies excessive drowsiness or sleepiness, denies suicidal ideation and reports that the current pain medication is helping to control the pain and improve activities of daily living. Patient denies any motor or sensory deficits. Patient denies any fever or night sweats, denies any change in the bowel movements or urination. Physical Examination: -Constitutional: Cooperative. Not in acute distress . - Neurologic: Cranial nerve II to XII intact. No focal neurological deficits. - Psychatric: Alert & oriented x 3. Matching mood & appropriate affect. Judgment and insight intact. - Musculoskeletal: Cervical spine: Muscle bulk/ tone/ strength in the bilateral upper extremities normal Vertebral body tenderness to palpation over Spurling test positive Distraction test positive Facet loading test positive TTP Thoracic spine Muscle bulk / tone/ strength in the bilateral paraspinal muscles normal Vertebral body tender to palpation over Facet loading test positive TTP Lumbar spine: Motor bulk/ tone/ strength lower extremities , thigh and legs : 5/5 Deep tendon reflexes : Normal Knee Jerk. Normal Ankle Jerk . Vertebral body tenderness to palpation over L4 Ramirez Test positive Lumbar Facet Loading Test positive Straight Leg Raise: positive at 30 degrees right side/ left side Gaenslen's Test positive Sacral spine : Severe tenderness over the Sacroiliac joint: right side / left side Range of motion: Flexion of the lumbar spine <60 degrees Range of motion: Extension of the lumbar spine <20 degrees Gaenslen's Test positive right side / left side Marko test: positive right side / left side Thigh Thrust Test positive right side / left side Sacral Thrust Test positive right side / left side Imaging: MRI non contrast of the lumbar spine from 11/14/22 reviewed Assessment and plan: Chronic LBP secondary to lumbar DDD, spondylosis with facet arthropathy without myelopathy Recommendation of PT x 6 wks re: M51.36. May return to clinic in 6 wks for a re evaluation. All questions answered. I have spent less than 30 minutes on patient care today. Dr Field was available by phone for the evaluation of this patient. The time was used to review the medical records including relevant urine studies and Prescription history (MAPs), review of the available imaging, evaluation and examination of the patient, coordination of care with the medical staff and if applicable referring physicians, as well as creation of the medical record PQRS Narrative: Hx Alcohol Use (MH) No Home Medications: Ambulatory Orders amLODIPine [Norvasc] 5 mg PO DAILY 02/21/20 lisinopriL 40 mg PO DAILY 02/21/20 Ibuprofen [Motrin] 200 - 400 mg PO BID PRN 02/22/20 Cholecalciferol [Vitamin D3 (25 Mcg = 1000 Iu)] 25 mcg PO DAILY 03/13/20 Multivit with Calcium,Iron,Min [Women's Multivitamin] 1 each PO DAILY 03/13/20 DULoxetine HCL [Cymbalta] 60 mg PO DAILY 09/27/20 Pregabalin [Lyrica] 75 mg PO TID 09/27/20 Controlled Substance Measures - Controlled Substance Measures Is patient prescribed a controlled substance at discharge?: No
== END ==
LOC: PNWHC3 10:48
PROVIDERS: ATTEND Specialist
DX: M48.061 Spinal stenosis, lumbar region without neurogenic claudication (principal); M51.36 Other intervertebral disc degeneration, lumbar region; M47.816 Spondylosis without myelopathy or radiculopathy, lumbar region; G89.29 Other chronic pain
CPT/HCPCS: 99211